=== PATIENT | male | born 1985 | race Caucasian/White ===

== ENCOUNTER 2017-01-12 06:26 | Day surgery (SDC) | payer OTHER ==
[2017-01-10 08:43] VITALS: BMI 35.5
[~2017-01-12 06:26] MED LIST: ACETAMINOPHEN TAB 500 MG TAB PO ONE; DEXAMETHASONE SOD PHOSPHATE 10 MG/ML 1 ML VIAL IV ONE; DEXAMETHASONE SOD PHOSPHATE 4 MG/ML 1 ML VIAL IV ONE; HYDROmorphone 1 MG/ML 1 ML SYRINGE IVP PRN; LACTATED RINGERS 1,000 ML IV SCH; MIDAZOLAM 2 MG/2 ML VIAL IV PRN; ONDANSETRON 4 MG/2 ML VIAL IVP ONE
[2017-01-12] MEDS ORDERED: LACTATED RINGERS 1,000 ML IV ONE (06:53)
[2017-01-12] MEDS ORDERED: MIDAZOLAM 2 MG/2 ML VIAL ONE (07:28)
[2017-01-12] MEDS ORDERED: SUCCINYLCHOLINE CHLORIDE 100 MG/5 ML SYR IV ONE (07:28)
[2017-01-12] MEDS ORDERED: HYDROmorphone (PF) 1 MG/ML ONE (07:28)
[2017-01-12] MEDS ORDERED: LIDOCAINE 1% INJ 10MG/ML (20 ML MDV) ONE (07:28)
[2017-01-12] MEDS ORDERED: fentaNYL (PF) 50 MCG/ML 2 ML AMP ONE (07:28)
[2017-01-12] MEDS ORDERED: PROPOFOL 10 MG/ML 20 ML VIAL IV ONE (07:28)
[2017-01-12] MEDS ORDERED: LIDOCAINE 2%-EPI 1:100,000 20 ML VIAL SUBMUCOSAL ONE (07:57)
--- NOTE | 2017-01-12 08:40 | P.OP ---
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 He needs 5-6 antibiotics per year for his tonsillitis. Infections always tenderness tonsils. They're cryptic and purulence is noted on the tonsils. He recently was treated with Augmentin for another infection. His problems have been going on for over 3 years and has had some sore throat issues even up to 5 years ago. He's had 6 documented cases of need for antibiotics for tonsillitis this last year alone. He is quite frustrated with these chronic infections and he is motivated for removal. Operative Findings: Large cryptic tonsils and adenoids with exudate coming from the crypts of the tonsil. Description of Procedure: This patient was taken to the operative room and placed in the supine position. A general inhalation anesthetic was administered the patient by mask and subsequently intubated with a cuffed endotracheal tube by the department of anesthesia with a functioning IV line in place. The patient was monitored throughout the entire case by the department of anesthesia. The mouth was opened with a #4 McIvor mouth gag. The tonsils were grasped with an Allis forceps and the mucosa was with use of a tonsil LigaSure device. We dissected the mucosa with use of the LigaSure. We did a subcapsular dissection with use of a LigaSure. We sealed the tissue with the LigaSure and excellent hemostasis was obtained. We did utilized a suction coagulation device and the superior pole. This was done bilaterally and symmetrically. Tonsils were removed and sent for pathology. Attention was then paid to the nasopharynx where a red rubber catheter was placed through the nose and out the mouth used to retract the soft palate. The adenoids were electrofulgurated. The patient tolerated this well and follow-up will be in the office in 1 week. The patient is to contact me if any problems should arise. Marcaine was injected into the peritonsillar region.
[2017-01-12 08:48] VITALS: TEMP 98.3
[2017-01-12 09:17] VITALS: RESP 18
[2017-01-12] MEDS ORDERED: diphenhydrAMINE 50 MG/ML 1 ML VIAL IVP ONE (09:21)
[2017-01-12] MEDS ORDERED: HYDROcodone/APAP 5-325MG 1 EACH TAB PO ONE (10:14)
[2017-01-12 10:57] VITALS: BP 136/75; PULSE 84
== END 2017-01-12 11:43 | disposition home or self-care (01) ==
LOC: OR 06:26
PROVIDERS: ATTEND Otolaryngology
DX: J35.03 Chronic tonsillitis and adenoiditis (principal); I10 Essential (primary) hypertension; K21.9 Gastro-esophageal reflux disease without esophagitis; Z79.899 Other long term (current) drug therapy
CPT/HCPCS: 88304; 42821; J2250; J1200; J1100; J2405; J2001; J3010; J1170; J0330; J2704